=== PATIENT | female | born 1945 | race Caucasian/White ===

== ENCOUNTER 2016-10-20 03:26 | Inpatient (IN) | payer MEDICAID, MEDICARE ==
[~2016-10-20] VITALS: Ht 149.9 cm; Wt 54.5 kg
[2016-10-20] VITALS (7 sets, daily range): BP systolic 98–129; BP diastolic 51–68
[2016-10-20] MEDS ORDERED: MAC100 PO (03:49)
[2016-10-20] MEDS ORDERED: LORAZEPAM0.5 MG PO (03:50)
[2016-10-20] MEDS ORDERED: BENZTROPINE ME0.5 MG PO (03:50)
[2016-10-20] MEDS ORDERED: MUCINEX DM1 TE1 (03:51)
[2016-10-20] MEDS ORDERED: [UNRECOGNIZED DRUG - OTHER] (03:51)
[2016-10-20] MEDS ORDERED: MUCINEX600 MG (03:51)
[2016-10-20] MEDS ORDERED: GOOD NEIGH1200 MG/15 (03:51)
[2016-10-20] MEDS ORDERED: LACTULOSE10 GM/152 PO (03:52)
[2016-10-20] MEDS ORDERED: MAPAP EXTRA ST500 M1 PO (03:52)
[2016-10-20] MEDS ORDERED: OSCD (03:53)
[2016-10-20] MEDS ORDERED: CHLOROPHYLL (03:53)
[2016-10-20] MEDS ORDERED: METFORMIN HCL500 MG PO (03:54)
[2016-10-20] MEDS ORDERED: TRAZODONE50 M1 PO (03:54)
[2016-10-20] MEDS ORDERED: ZYPREXA15 M1 (03:54)
[2016-10-20] MEDS ORDERED: ZOCOR20 MG PO (03:55)
[2016-10-20] MEDS ORDERED: VITAMIN B121000 MCG (03:55)
[2016-10-20 04:11] LABS: BASOPHIL % 0.1 % (0-2); PLATELET COUNT 170 x10^3mcL (130-400); RED CELL DISTRIBUTION WIDTH 12.7 % (11.5-14.5)
[2016-10-20 04:20] LABS: microscopic required? NO
[2016-10-20 04:23] LABS: CALCIUM 8.2 mg/dL (8.5-10.1); CARBON DIOXIDE 29.1 mmol/L (21-32); CHLORIDE SERUM 106 mmol/L (98-107); CREATININE SERUM 0.6 mg/dL (0.6-1.0); GLUCOSE SERUM 90 mg/dL (74-106); SODIUM SERUM 141 mmol/L (136-145)
[2016-10-20 04:28] LABS: ALKALINE PHOSPHATASE 82 U/L (46-116); ALT/SGPT 27 U/L (14-59); AST/SGOT 15 U/L (15-37); BILIRUBIN TOTAL 0.3 mg/dL (0.20-1.00); MAGNESIUM 1.8 mg/dL (1.8-2.4); TOTAL PROTEIN, SERUM 6.3 g/dL (6.4-8.2)
[2016-10-20 04:30] LABS: ALBUMIN 2.9 g/dL (3.4-5.0)
[2016-10-20 04:34] LABS: UA SPECIFIC GRAVITY <=1.005 (1.005-1.035); urine erythrocyte NEGATIVE (NEGATIVE)
[2016-10-20 05:43] LABS: PHOSPHOROUS 3.5 mg/dL (2.5-4.9)
[2016-10-20 05:44] LABS: CHOLESTEROL/HDL RATIO 3.3
[2016-10-20 05:45] LABS: T3 TOTAL 0.87 ng/mL
[2016-10-20 05:54] LABS: FREE T4 1.02 ng/dL (0.76-1.46); T4(THYROXINE) 6.1 ug/dL (4.7-13.3)
[2016-10-21 05:44] LABS: BASOPHIL % 0.3 % (0-2); CALCIUM 8.4 mg/dL (8.5-10.1); CARBON DIOXIDE 30.1 mmol/L (21-32); CHLORIDE SERUM 108 mmol/L (98-107); CREATININE SERUM 0.5 mg/dL (0.6-1.0); GLUCOSE SERUM 101 mg/dL (74-106); MAGNESIUM 1.9 mg/dL (1.8-2.4); PLATELET COUNT 155 x10^3mcL (130-400); POTASSIUM SERUM 3.9 mmol/L (3.5-5.1); RED CELL DISTRIBUTION WIDTH 12.7 % (11.5-14.5); SODIUM SERUM 143 mmol/L (136-145)
[2016-10-21 05:57] VITALS: BP 114/73
[2016-10-21 09:37] VITALS: BP 109/58
[2016-10-21 13:46] VITALS: BP 111/62
[2016-10-21 18:26] VITALS: BP 107/56
[2016-10-21 21:52] VITALS: BP 113/71
[2016-10-22 05:57] VITALS: BP 129/69
[2016-10-22 06:11] LABS: CALCIUM 8.8 mg/dL (8.5-10.1); CARBON DIOXIDE 30.7 mmol/L (21-32); CHLORIDE SERUM 107 mmol/L (98-107); CREATININE SERUM 0.5 mg/dL (0.6-1.0); GLUCOSE SERUM 103 mg/dL (74-106); PHOSPHOROUS 3.7 mg/dL (2.5-4.9); POTASSIUM SERUM 4.1 mmol/L (3.5-5.1); SODIUM SERUM 141 mmol/L (136-145)
[2016-10-22 07:19] LABS: BASOPHIL % 0.4 % (0-2); PLATELET COUNT 169 x10^3mcL (130-400); RED CELL DISTRIBUTION WIDTH 12.7 % (11.5-14.5)
[2016-10-22 09:25] VITALS: BP 124/78
[2016-10-22 18:30] VITALS: BP 127/71
[2016-10-22 21:16] VITALS: BP 130/79
[2016-10-23 05:37] VITALS: BP 131/73
[2016-10-23 10:00] VITALS: BP 150/90
[2016-10-23] MEDS ORDERED: LEVAQUIN750 MG PO (10:37)
[2016-10-23] MEDS ORDERED: CLINDAMYCIN HC300 MG PO (10:38)
[2016-10-23] MEDS ORDERED: LAC PO (10:39)
[2016-10-23 11:43] VITALS: BP 131/73
== END 2016-10-23 17:18 | DRG 137 ==
LOC: ED 03:26 → DU 04:50 → MU 10-22 06:43
PROVIDERS: Emergency Medicine; ADMIT Family Medicine
DX: J69.0 Pneumonitis due to inhalation of food and vomit (principal); J96.01 Acute respiratory failure with hypoxia; G93.41 Metabolic encephalopathy; D68.69 Other thrombophilia; E11.51 Type 2 diabetes mellitus with diabetic peripheral angiopathy without gangrene; F73 Profound intellectual disabilities; D64.9 Anemia, unspecified; K59.09 Other constipation; G20 Parkinson's disease; G80.9 Cerebral palsy, unspecified; J98.11 Atelectasis; E78.5 Hyperlipidemia, unspecified; M85.80 Other specified disorders of bone density and structure, unspecified site; R15.9 Full incontinence of feces; R32 Unspecified urinary incontinence; Z79.84 Long term (current) use of oral hypoglycemic drugs; G47.00 Insomnia, unspecified
CPT/HCPCS: 36600; 82962; 83880; 84439; 94150; J1956; J3490; J7030; J7620; Q0092

== ENCOUNTER 2016-10-24 17:28 | Observation (INO) | payer MEDICARE, MEDICAID ==
[~2016-10-24] VITALS: Ht 149.9 cm; Wt 45.4 kg
[~2016-10-24 17:28] MED LIST: BENZTROPINE ME0.5 MG PO; CHLOROPHYLL; CLINDAMYCIN HC300 MG PO; GOOD NEIGH1200 MG/15; LAC PO; LACTULOSE10 GM/152 PO; LEVAQUIN750 MG PO; LORAZEPAM0.5 MG PO; MAC100 PO; MAPAP EXTRA ST500 M1 PO; METFORMIN HCL500 MG PO; MUCINEX DM1 TE1; MUCINEX600 MG; OSCD; TRAZODONE50 M1 PO; VITAMIN B121000 MCG; ZOCOR20 MG PO; ZYPREXA15 M1; [UNRECOGNIZED DRUG - OTHER]
[2016-10-24 19:55] LABS: CALCIUM 11.5 mg/dL (8.5-10.1); CHLORIDE SERUM 101 mmol/L (98-107); CREATININE SERUM 0.8 mg/dL (0.6-1.0); GLUCOSE SERUM 121 mg/dL (74-106); POTASSIUM SERUM 3.6 mmol/L (3.5-5.1); SODIUM SERUM 137 mmol/L (136-145)
[2016-10-24 19:58] LABS: PLATELET COUNT 258 x10^3mcL (130-400); RED CELL DISTRIBUTION WIDTH 12.9 % (11.5-14.5)
[2016-10-24 20:03] LABS: ALKALINE PHOSPHATASE 107 U/L (46-116); ALT/SGPT 35 U/L (14-59); AST/SGOT 24 U/L (15-37); BASOPHIL % 0 % (0-2); BILIRUBIN TOTAL 0.43 mg/dL (0.20-1.00)
[2016-10-24 20:05] LABS: CHOLESTEROL 119 mg/dL (<200); HDL CHOLESTEROL 30 mg/dL (40-60); TOTAL PROTEIN, SERUM 8.5 g/dL (6.4-8.2)
[2016-10-24 21:32] LABS: UA SPECIFIC GRAVITY >=1.030 (1.005-1.035); microscopic required? YES; urine erythrocyte NEGATIVE (NEGATIVE)
[2016-10-24 23:42] LABS: MAGNESIUM 1.9 mg/dL (1.8-2.4); PHOSPHOROUS 4.5 mg/dL (2.5-4.9)
[2016-10-24 23:56] LABS: FREE T4 1.56 ng/dL (0.76-1.46); T4(THYROXINE) 11.7 ug/dL (4.7-13.3)
[2016-10-25] VITALS (8 sets, daily range): BP systolic 97–138; BP diastolic 56–81; Ht 149.9 cm; Wt 45.4 kg
[2016-10-25 00:44] LABS: T3 TOTAL 1.18 ng/mL
[2016-10-25 06:35] LABS: BASOPHIL % 0.4 % (0-2); PLATELET COUNT 200 x10^3mcL (130-400); RED CELL DISTRIBUTION WIDTH 13.1 % (11.5-14.5)
[2016-10-25 06:43] LABS: CALCIUM 10.2 mg/dL (8.5-10.1); CARBON DIOXIDE 28.1 mmol/L (21-32); CHLORIDE SERUM 105 mmol/L (98-107); CREATININE SERUM 0.7 mg/dL (0.6-1.0); GLUCOSE SERUM 103 mg/dL (74-106); POTASSIUM SERUM 3.7 mmol/L (3.5-5.1); SODIUM SERUM 139 mmol/L (136-145)
[2016-10-25] MEDS ORDERED: BENZTROPINE ME0.5 MG PO (12:31)
[2016-10-25] MEDS ORDERED: LAC PO (17:25)
[2016-10-25] MEDS ORDERED: ZOS3PM IV (17:25)
== END 2016-10-25 21:17 | DRG 179 ==
LOC: ED 17:28 → DU 10-25 00:25
PROVIDERS: Emergency Medicine; ADMIT Family Medicine
DX: J69.0 Pneumonitis due to inhalation of food and vomit (principal); K59.09 Other constipation; E11.9 Type 2 diabetes mellitus without complications; E86.0 Dehydration; E78.5 Hyperlipidemia, unspecified; G40.909 Epilepsy, unspecified, not intractable, without status epilepticus; G47.00 Insomnia, unspecified; G80.9 Cerebral palsy, unspecified; G20 Parkinson's disease; E55.9 Vitamin D deficiency, unspecified; R32 Unspecified urinary incontinence; R15.9 Full incontinence of feces
CPT/HCPCS: 36600; 82962; 83880; 84439; G0378; J2543; J3490; J7030; J7613; Q0092

== ENCOUNTER 2017-06-05 18:46 | Inpatient (IN) | payer MEDICAID, MEDICARE ==
[~2017-06-05] VITALS: Ht 157.5 cm; Wt 53.1 kg
[~2017-06-05 18:46] MED LIST changes: +ZOS3PM IV
[2017-06-05 20:40] LABS: BASOPHIL % 0.1 % (0-2); PLATELET COUNT 194 x10^3mcL (130-400); RED CELL DISTRIBUTION WIDTH 12.9 % (11.5-14.5)
[2017-06-05 20:44] LABS: CALCIUM 8.9 mg/dL (8.5-10.1); CARBON DIOXIDE 31.8 mmol/L (21-32); CHLORIDE SERUM 101 mmol/L (98-107); CREATININE SERUM 0.9 mg/dL (0.6-1.0); GLUCOSE SERUM 166 mg/dL (74-106); SODIUM SERUM 140 mmol/L (136-145)
[2017-06-05 20:55] LABS: ALBUMIN 3.4 g/dL (3.4-5.0); ALKALINE PHOSPHATASE 101 U/L (46-116); ALT/SGPT 38 U/L (14-59); AMYLASE 30 U/L (25-115); AST/SGOT 26 U/L (15-37); BILIRUBIN TOTAL 0.2 mg/dL (0.20-1.00); LIPASE 97 IU/L (73-393); MAGNESIUM 1.9 mg/dL (1.8-2.4); T4(THYROXINE) 6.4 ug/dL (4.7-13.3); TOTAL PROTEIN, SERUM 7.8 g/dL (6.4-8.2)
[2017-06-05 20:56] LABS: CHOLESTEROL 119 mg/dL (<200); HDL CHOLESTEROL 33 mg/dL (40-60)
[2017-06-05 21:47] LABS: UA SPECIFIC GRAVITY 1.025 (1.005-1.035); microscopic required? YES; urine erythrocyte TRACE (NEGATIVE)
[2017-06-05 22:52] VITALS: BP 120/77
[2017-06-05 22:59] LABS: PHOSPHOROUS 2.7 mg/dL (2.5-4.9)
[2017-06-05 23:00] LABS: AMPHETAMINE QUAL UR NONE DETECTED (NEG <=1000)
[2017-06-05 23:00] LABS: CHOLESTEROL/HDL RATIO 3.7
[2017-06-06] VITALS (7 sets, daily range): BP systolic 108–133; BP diastolic 43–83
[2017-06-06 06:50] LABS: BASOPHIL % 0.4 % (0-2); PLATELET COUNT 162 x10^3mcL (130-400)
[2017-06-06 06:51] LABS: CALCIUM 8.3 mg/dL (8.5-10.1); CARBON DIOXIDE 28.3 mmol/L (21-32); CHLORIDE SERUM 106 mmol/L (98-107); CREATININE SERUM 0.6 mg/dL (0.6-1.0); GLUCOSE SERUM 106 mg/dL (74-106); MAGNESIUM 1.8 mg/dL (1.8-2.4); PHOSPHOROUS 2.7 mg/dL (2.5-4.9); POTASSIUM SERUM 3.8 mmol/L (3.5-5.1); SODIUM SERUM 141 mmol/L (136-145)
[2017-06-07 05:54] VITALS: BP 107/70
[2017-06-07 07:16] LABS: BASOPHIL % 0.2 % (0-2); PLATELET COUNT 158 x10^3mcL (130-400); RED CELL DISTRIBUTION WIDTH 12.9 % (11.5-14.5)
[2017-06-07 07:19] LABS: CALCIUM 8.5 mg/dL (8.5-10.1); CARBON DIOXIDE 27.4 mmol/L (21-32); CHLORIDE SERUM 102 mmol/L (98-107); CREATININE SERUM 0.6 mg/dL (0.6-1.0); GLUCOSE SERUM 86 mg/dL (74-106); MAGNESIUM 1.9 mg/dL (1.8-2.4); PHOSPHOROUS 3.1 mg/dL (2.5-4.9); POTASSIUM SERUM 3.7 mmol/L (3.5-5.1); SODIUM SERUM 139 mmol/L (136-145)
[2017-06-07 10:00] VITALS: BP 120/78
[2017-06-07 12:58] VITALS: BP 114/75
[2017-06-07 18:37] VITALS: BP 128/76
[2017-06-07 20:34] VITALS: BP 137/81
[2017-06-08 05:19] VITALS: BP 101/63
[2017-06-08 08:30] VITALS: BP 114/65
[2017-06-08 13:40] VITALS: BP 100/67
[2017-06-08 17:00] VITALS: BP 118/64
[2017-06-08 20:49] VITALS: BP 113/73
[2017-06-09 05:56] VITALS: BP 98/49
[2017-06-09 06:40] LABS: BASOPHIL % 0.6 % (0-2); PLATELET COUNT 196 x10^3mcL (130-400); RED CELL DISTRIBUTION WIDTH 12.8 % (11.5-14.5)
[2017-06-09 06:44] LABS: CALCIUM 8.4 mg/dL (8.5-10.1); CARBON DIOXIDE 26.6 mmol/L (21-32); CHLORIDE SERUM 107 mmol/L (98-107); CREATININE SERUM 0.5 mg/dL (0.6-1.0); GLUCOSE SERUM 106 mg/dL (74-106); POTASSIUM SERUM 3.9 mmol/L (3.5-5.1); SODIUM SERUM 142 mmol/L (136-145)
[2017-06-09 09:25] VITALS: BP 103/54
[2017-06-09 14:11] VITALS: BP 107/58
[2017-06-09 15:56] VITALS: BP 107/58
[2017-06-09 17:05] VITALS: BP 115/65
[2017-06-09 21:07] VITALS: BP 123/70
[2017-06-10 06:09] VITALS: BP 130/81
[2017-06-10 08:20] LABS: BASOPHIL % 0.3 % (0-2); PLATELET COUNT 198 x10^3mcL (130-400); RED CELL DISTRIBUTION WIDTH 12.9 % (11.5-14.5)
[2017-06-10 08:33] LABS: CALCIUM 8.4 mg/dL (8.5-10.1); CARBON DIOXIDE 28.1 mmol/L (21-32); CHLORIDE SERUM 106 mmol/L (98-107); CREATININE SERUM 0.5 mg/dL (0.6-1.0); GLUCOSE SERUM 107 mg/dL (74-106); PHOSPHOROUS 3.1 mg/dL (2.5-4.9); POTASSIUM SERUM 3.8 mmol/L (3.5-5.1); SODIUM SERUM 140 mmol/L (136-145)
[2017-06-10 09:31] VITALS: BP 93/54
[2017-06-10] MEDS ORDERED: LEV250 PO (12:04)
[2017-06-10 13:07] VITALS: BP 93/54
[2017-06-10 14:05] VITALS: BP 99/61
[2017-06-10 18:04] VITALS: BP 109/51
[2017-06-10 21:07] VITALS: BP 92/56
[2017-06-11 05:14] VITALS: BP 126/70
[2017-06-11 06:22] LABS: BASOPHIL % 0.4 % (0-2); PLATELET COUNT 204 x10^3mcL (130-400); RED CELL DISTRIBUTION WIDTH 12.8 % (11.5-14.5)
[2017-06-11 08:35] VITALS: BP 104/59
[2017-06-11 17:27] VITALS: BP 115/65
[2017-06-11 21:00] VITALS: BP 98/51
[2017-06-12 05:37] VITALS: BP 99/51
[2017-06-12 07:50] VITALS: BP 104/59
[2017-06-12] MEDS ORDERED: CLE6PM IV (12:57)
[2017-06-12] MEDS ORDERED: IPRATROPIUM BROM3 M2 HHN ×2 (12:57)
[2017-06-12] MEDS ORDERED: LEV500PM IV (12:57)
[2017-06-12 13:00] VITALS: BP 121/64
[2017-06-12 13:19] VITALS: BP 104/59
== END 2017-06-12 14:15 | DRG 720 ==
LOC: ED 18:46 → DU 21:29
PROVIDERS: Emergency Medicine; Family Medicine; Student in an Organized Health Care Education/Training Program; ADMIT Family Medicine
DX: A41.9 Sepsis, unspecified organism (principal); J69.0 Pneumonitis due to inhalation of food and vomit; N17.0 Acute kidney failure with tubular necrosis; R65.21 Severe sepsis with septic shock; G93.41 Metabolic encephalopathy; N39.0 Urinary tract infection, site not specified; E11.9 Type 2 diabetes mellitus without complications; B96.22 Other specified Shiga toxin-producing Escherichia coli [E. coli] [STEC] as the cause of diseases classified elsewhere; D64.9 Anemia, unspecified; F73 Profound intellectual disabilities; G20 Parkinson's disease; D68.69 Other thrombophilia; R31.9 Hematuria, unspecified; Q13.2 Other congenital malformations of iris; G80.9 Cerebral palsy, unspecified; G47.00 Insomnia, unspecified; E21.3 Hyperparathyroidism, unspecified; E78.1 Pure hyperglyceridemia; Z68.20 Body mass index [BMI] 20.0-20.9, adult; Z79.84 Long term (current) use of oral hypoglycemic drugs
CPT/HCPCS: 82962; 83880; 92610; G0480; J1940; J1956; J2060; J2270; J2920; J3490; J7030; J7040; J7620; J7626; Q0092